=== PATIENT | female | born 1970 | race Caucasian/White ===

== ENCOUNTER 2016-06-22 08:26 | Outpatient (CLI) ==
[2015-12-11 15:16] VITALS: BMI 20.4
[2016-06-22 12:52] LABS: CHOL/HDL RATIO 3.6 (4.5-5.5)
== END 2016-06-22 08:27 | disposition home or self-care (01) ==
LOC: LAB 08:26
PROVIDERS: ATTEND Nurse Practitioner Family
DX: I10 Essential (primary) hypertension (principal); Z72.0 Tobacco use
CPT/HCPCS: 36415; 80061; 84443

== ENCOUNTER 2016-09-30 11:53 | Outpatient (CLI) ==
[2015-12-11 15:16] VITALS: BMI 20.4
[2016-09-30 14:17] LABS: BASOPHILS # (AUTO) 0.1 K/uL (0-0.2); BASOPHILS % (AUTO) 0.8 % (0.0-3.0); EOSINOPHILS # (AUTO) 0.2 K/ul (0.0-0.7); EOSINOPHILS % (AUTO) 2.3 % (0.0-7.0); HEMATOCRIT 44.1 % (37.0-47.0); HEMOGLOBIN 14.8 g/dl (12.0-16.0); IMMATURE GRANULOCYTE % (AUTO) 0.3 % (0.0-5.0); LYMPHOCYTES # (AUTO) 2.9 K/uL (0.60-3.4); MEAN CORPUSCULAR HEMOGLOBIN 31.3 pg (27.0-31.0); MEAN CORPUSCULAR HGB CONC 33.6 (31.8-35.4); MEAN CORPUSCULAR VOLUME 93.2 fl (81.0-99.0); MONOCYTES # (AUTO) 0.5 K/uL (0.4-2.0); MONOCYTES % (AUTO) 4.7 (0-10); NEUTROPHILS # (AUTO) 6.7 K/ul (2.0-6.9); NEUTROPHILS % (AUTO) 63.9; PLATELET COUNT 271 10^3/uL (140-440); RED BLOOD COUNT 4.73 10^6/ul (4.20-5.40); WHITE BLOOD COUNT 10.43 K/ul (4.6-10.2)
[2016-09-30 14:34] LABS: ALBUMIN 4.2 g/dL (3.4-5.0); ALBUMIN/GLOBULIN RATIO 0.89; ANION GAP 16.7; BILIRUBIN,TOTAL 0.73 mg/dL (0.00-1.20); BUN/CREATININE RATIO 14.92; CALCIUM 10.2 mg/dL (8.2-10.2); CHOL/HDL RATIO 3.9 (4.5-5.5); CREATININE 0.67 mg/dL (0.60-1.30); POTASSIUM 3.7 mmol/L (3.5-5.10); TOTAL PROTEIN 8.9 g/dL (6.4-8.2)
[2016-10-05 10:36] LABS: RHEUMATOID ARTHRITIS FACTOR < 10.0 IU/mL (0.0-13.9)
[2016-10-06 09:22] LABS: ANTI-NUCLEAR ANTIBODY SCREEN Negative (Negative)
== END 2016-09-30 11:54 ==
LOC: LAB 11:53
PROVIDERS: ATTEND Nurse Practitioner Family
DX: M25.50 Pain in unspecified joint (principal)
CPT/HCPCS: 36415; 80053; 80061; 85025; 86038; 86430

== ENCOUNTER 2017-03-21 13:23 | Outpatient (CLI) ==
[2015-12-11 15:16] VITALS: BMI 20.4
[2017-03-21 13:33] LABS: BASOPHILS # (AUTO) 0.1 K/uL (0-0.2); BASOPHILS % (AUTO) 0.9 % (0.0-3.0); EOSINOPHILS # (AUTO) 0.2 K/ul (0.0-0.7); EOSINOPHILS % (AUTO) 1.9 % (0.0-7.0); HEMOGLOBIN 13.5 g/dl (12.0-16.0); IMMATURE GRANULOCYTE % (AUTO) 0.3 % (0.0-5.0); LYMPHOCYTES # (AUTO) 2.3 K/uL (0.60-3.4); LYMPHOCYTES % (AUTO) 20.3 (10.0-50.0); MEAN CORPUSCULAR HEMOGLOBIN 31.3 pg (27.0-31.0); MEAN CORPUSCULAR HGB CONC 33.8 (31.8-35.4); MEAN CORPUSCULAR VOLUME 92.8 fl (81.0-99.0); MONOCYTES # (AUTO) 0.5 K/uL (0.4-2.0); MONOCYTES % (AUTO) 4.4 (0-10); NEUTROPHILS # (AUTO) 8.4 K/ul (2.0-6.9); NEUTROPHILS % (AUTO) 72.2; PLATELET COUNT 395 10^3/uL (140-440); RED BLOOD COUNT 4.31 10^6/ul (4.20-5.40); WHITE BLOOD COUNT 11.55 K/ul (4.6-10.2)
[2017-03-21 14:05] LABS: ALBUMIN 3.7 g/dL (3.4-5.0); ALBUMIN/GLOBULIN RATIO 0.79; ANION GAP 14.2; BILIRUBIN,TOTAL 0.75 mg/dL (0.00-1.20); BUN/CREATININE RATIO 12.9; CALCIUM 9.6 mg/dL (8.2-10.2); CHOL/HDL RATIO 4.2 (4.5-5.5); CREATININE 0.62 mg/dL (0.60-1.30); POTASSIUM 4.2 mmol/L (3.5-5.10); TOTAL PROTEIN 8.4 g/dL (6.4-8.2)
== END 2017-03-21 13:24 | disposition home or self-care (01) ==
LOC: LAB 13:23
PROVIDERS: ATTEND Emergency Medicine
DX: I10 Essential (primary) hypertension (principal)
CPT/HCPCS: 36415; 80053; 80061; 84443; 85025

== ENCOUNTER 2017-09-07 12:18 | Outpatient (CLI) | payer OTHER ==
[2015-12-11 15:16] VITALS: BMI 20.4
== END 2017-09-07 12:19 | disposition home or self-care (01) ==
LOC: FCC-LAB 12:18
PROVIDERS: ATTEND Nurse Practitioner Family
DX: I10 Essential (primary) hypertension (principal); J43.9 Emphysema, unspecified; F41.9 Anxiety disorder, unspecified
CPT/HCPCS: 36415; 80053; 80061; 84439; 84443; 85025

== ENCOUNTER 2017-10-26 07:42 | Outpatient (CLI) ==
[2015-12-11 15:16] VITALS: BMI 20.4
--- NOTE | 2017-10-26 08:42 | CT ---
EXAM: CT chest without contrast HISTORY: Solitary pulmonary nodule COMPARISON: 07/19/2015 TECHNIQUE: CT chest performed with and without intravenous contrast. Coronal and sagittal reformatt ed images obtained. FINDINGS: Thyroid and thoracic inlet appear normal. Heart normal in size. No pericardial effusion. Esophagus appears normal. Visualized portion upper abdomen demonstrates no acute abnormality. Bila teral breast implants. Old healed fractures right eighth and ninth ribs. No acute abnormalities of th e bones. No suspicious lytic or blastic lesions identified. Central airway patent. There is a new c avitary mass with thick wall in the posterior inferior aspect of the right upper lobe measuring 2.3 x 3.5 cm. Band-like opacities extend about the peripheral aspect of the mass. Numerous adjacent new s atellite nodules are present in the right upper lobe measuring up to approximately 1.1 cm image 18. Moderate centrilobular and para septal emphysema. A few stable micronodules in the left lung are unc hanged from 2016, consistent with benign etiology. No pleural effusion or pneumothorax. Mildly enla rged right hilar lymph node measuring 1.1 cm image 23. Scattered sub centimeter mediastinal lymph no margot present. IMPRESSION: 1. Unexpected finding: New right upper lobe cavitary mass. Multiple new adjacent satellite nodules . Differential diagnosis includes malignancy and atypical infectious etiology. Tissue sampling is r ecommended. 2. Mild right hilar lymphadenopathy. 3. Emphysema
== END 2017-10-26 07:43 | disposition home or self-care (01) ==
LOC: RAD 07:42
PROVIDERS: ATTEND Nurse Practitioner Family
DX: R91.1 Solitary pulmonary nodule (principal); R43.9 Unspecified disturbances of smell and taste

== ENCOUNTER 2017-10-27 07:59 | Outpatient (CLI) ==
[2015-12-11 15:16] VITALS: BMI 20.4
--- NOTE | 2017-10-27 09:30 | MAMMO ---
EXAM: Bilateral digital screening mammogram (2-D and 3-D) History: Baseline screening Findings: MLO and CC views of bilateral breasts demonstrate heterogeneously dense breast parenchyma which can obscure small lesions. CAD was reviewed by the radiologist. Tomosynthesis was performed. Coarse benign bilateral breast calcifications. Bilateral breast implants are intact. Impression: Benign mammogram. Recommend followup routine screening mammography in 1 year. BIRADS 2
== END 2017-10-27 08:00 | disposition home or self-care (01) ==
LOC: RAD 07:59
PROVIDERS: ATTEND Nurse Practitioner Family
DX: Z12.31 Encounter for screening mammogram for malignant neoplasm of breast (principal); R91.8 Other nonspecific abnormal finding of lung field; Z98.82 Breast implant status
CPT/HCPCS: 77067

== ENCOUNTER 2018-01-10 11:14 | Outpatient (CLI) ==
[2015-12-11 15:16] VITALS: BMI 20.4
== END 2018-01-10 11:15 | disposition home or self-care (01) ==
LOC: LAB 11:14
PROVIDERS: ATTEND Internal Medicine Pulmonary Disease
DX: Z51.81 Encounter for therapeutic drug level monitoring (principal); Z79.899 Other long term (current) drug therapy; J43.9 Emphysema, unspecified; R91.1 Solitary pulmonary nodule
CPT/HCPCS: 36415; 80053; 85025

== ENCOUNTER 2018-09-03 12:08 | Outpatient (CLI) ==
[2015-12-11 15:16] VITALS: BMI 20.4
== END 2018-09-03 12:09 | disposition home or self-care (01) ==
LOC: RHC-LAB 12:08
PROVIDERS: ATTEND Family Medicine
DX: R10.13 Epigastric pain (principal); Z86.11 Personal history of tuberculosis; Z79.899 Other long term (current) drug therapy
CPT/HCPCS: 36415; 80053; 82150; 83690; 84443; 85025; 87338

== ENCOUNTER 2018-09-04 08:10 | Outpatient (CLI) ==
[2015-12-11 15:16] VITALS: BMI 20.4
--- NOTE | 2018-09-04 08:55 | US ---
EXAM: Right upper quadrant abdominal ultrasound. History: Epigastric abdominal pain. Comparison: CT abdomen pelvis 07/19/2015 Technique: Multiple sonographic images through the abdomen were obtained. Color duplex Doppler was used to interrogate vascular flow. Findings: The liver is not enlarged. No focal liver lesions. There is antegrade flow within main portal vein. Visualized pancreas demonstrates no abnormality. No abdominal ascites. No shadowing gallstones. Gallbladder wall is not thickened. Common bile duct measures 0.3 cm in caliber. Limited visualizati on of the right kidney demonstrates no evidence for hydronephrosis. Impression: Unremarkable exam
== END 2018-09-04 08:11 | disposition home or self-care (01) ==
LOC: RAD 08:10
PROVIDERS: ATTEND Family Medicine
DX: R10.13 Epigastric pain (principal)
CPT/HCPCS: 87338

== ENCOUNTER 2018-09-11 07:42 | Outpatient (CLI) ==
[2015-12-11 15:16] VITALS: BMI 20.4
--- NOTE | 2018-09-11 10:32 | NM ---
EXAM: Hepatobiliary scan HISTORY: Right upper quadrant pain that radiates to the back for 3 weeks. Constipation. COMPARISON: None of this type. Ultrasound 09/04/2018 PROCEDURE: The patient was injected with 5.2 mCi of 99mTc mebrofenin intravenously. Images of the ab domen were obtained at 5 min intervals for 30 minutes. Additional images were obtained at 45 minute s and 1 hour. The patient was then injected with 2 mcg of CCK by slow infusion while images of the ga llbladder were obtained to assess gallbladder contraction. The patient reported pain associated with the injection of CCK. FINDINGS: Sequential images demonstrate normal uptake of tracer into the liver. Activity is seen in the intrahepatic biliary ducts at about 10 minutes. The activity appears in the gallbladder at about 10 minutes. Subsequent images demonstrate increasing activity in the gallbladder. Activity first a ppears in the small bowel at 30 minutes. The gallbladder ejection fraction is 90% . IMPRESSION: 1.Normal hepatobiliary scan. 2.The gallbladder ejection fraction is 90% (normal).
== END 2018-09-11 07:43 | disposition home or self-care (01) ==
LOC: RAD 07:42
PROVIDERS: ATTEND Family Medicine
DX: R10.11 Right upper quadrant pain (principal)

== ENCOUNTER 2018-12-24 14:51 | Outpatient (CLI) ==
[2015-12-11 15:16] VITALS: BMI 20.4
== END 2018-12-24 14:52 | disposition home or self-care (01) ==
LOC: RHC-LAB 14:51 → FCC-LAB 14:52
PROVIDERS: ATTEND Family Medicine
DX: F41.9 Anxiety disorder, unspecified (principal)